=== PATIENT | male | born 2000 | race African-American/Black ===

== ENCOUNTER 2020-11-24 17:55 | Emergency (ER) | payer OTHER, SELFPAY ==
--- NOTE | ~2020-11-24 | XR_ITS ---
EXAMINATION: XR CHEST CLINICAL INFORMATION: Mid chest pain COMPARISON: None TECHNIQUE: Frontal view of the chest was obtained. FINDINGS: No significant abnormality is noted involving the heart, lungs, mediastinum, bony thorax or soft tissues. XR/XR chest 1V IMPRESSION: Unremarkable examination.
[2020-11-24 17:58] VITALS: BP 171/82; PULSE 90; RESP 18; TEMP 36.8; O2SAT 96; BMI 37.3
--- NOTE | 2020-11-24 18:49 | ED_ITS ---
HPI - Abdominal Pain General Chief Complaint: Abdominal Pain Stated Complaint: CP Time Seen by Provider: 11/24/20 18:49 Source: patient and family Mode of arrival: ambulatory Limitations: no limitations History of Present Illness HPI narrative: Patient 13 years old with no significant past medical history smokes marijuana c/o pain epigastric radiating to the mid chest for last 1 week specially after he eats food no nausea no vomiting has not taken any medication for pain so far, no nausea no vomiting Related Data Previous Rx's Medication Instructions Recorded omeprazole 20 mg PO DAILY #20 cap 11/24/20 Allergies Allergy/AdvReac Type Severity Reaction Status Date / Time No Known Allergies Allergy Unverified 02/16/20 17:12 Review of Systems Review of Systems Yes all other systems are reviewed and are negative Physical Exam Vital Signs: Vital Signs: Last Vital Signs Temp 98.0 F 11/24/20 20:11 Pulse 71 11/24/20 20:11 Resp 15 11/24/20 20:11 BP 159/81 H 11/24/20 20:11 Pulse Ox 99 11/24/20 20:11 Body Mass Index 37.3 Appearance: Alert. Oriented X3. No acute distress. anxious Eyes: PERRLA, No Nystagmus ENT: Pharynx normal. Oral Mucosa moist Neck: Normal inspection. Neck supple. CVS: Normal heart rate and rhythm. Pulses normal. Respiratory: No respiratory distress. Equal air entry bilateral, no wheezing/rales/rhonchi Abdomen: Soft mild epigastric tenderness Bowel sounds are present, no mass palpable, no CVA tenderness Skin: Skin warm and dry. Normal skin color. Normal skin turgor. Extremities: No lower extremity edema. No calf tenderness Neuro: Oriented X 3. No motor deficit. No sensory deficit MDM - Abdominal Pain MDM Narrative Medical decision making narrative: chest x-ray negative for pneumomediastinum, EKG is without any acute ischemic changes discharge patient feeling better after Maalox ECG Data Attestation: I personally reviewed and interpreted this ECG as follows: Interpretation: normal sinus rhythm heart rate 74 beats per minute normal axis normal intervals no acute ischemic changes Discharge Plan Discharge Clinical Impression: Acute superficial gastritis Patient Disposition: Home, Self-Care Instructions: Gastritis (ED) Additional Instructions: avoid spicy/ greasy food Take medication as prescribed Follow-up with PCP if not better take Maalox/ Mylanta daily 3- 4 times a day Prescriptions: New omeprazole 20 mg capsule,delayed release(DR/EC) 20 mg PO DAILY Qty: 20 RF: 0 Interventions: ED Discharge Assessment Last Done: 11/24/20 21:07 Discharge Date/Time: 11/24/20 21:08 FORMERLY [facility] Past Medical History Medical History No known health problems Social History Social History Advance Directives: No Advance Directives Information Provided: Yes
[2020-11-24] MEDS: Lidocaine HCl Viscous 2 % 15 ML SOLUTION MUCOUS MEM (19:31)
[2020-11-24] MEDS: Omeprazole 40 MG CAPSULE.DR PO (19:31)
[2020-11-24] MEDS: Magnesium Hydrox/Alum Hydrox 30 ML ORAL.SUSP PO (19:31)
--- NOTE | 2020-11-24 19:34 | ECG_ITS ---
Test Reason : CHEST PAIN Blood Pressure : / mmHG Vent. Rate : 074 BPM Atrial Rate : 074 BPM P-R Int : 140 ms QRS Dur : 080 ms QT Int : 362 ms P-R-T Axes : 010 011 -16 degrees QTc Int : 401 ms Normal sinus rhythm Minimal voltage criteria for LVH, may be normal variant Nonspecific T wave abnormality Abnormal ECG No previous ECGs available Referred By: Justice Paulino Electronically Signed By:Romaine Carreno
[2020-11-24 20:11] VITALS: BP 159/81; PULSE 71; RESP 15; TEMP 36.7; O2SAT 99
== END 2020-11-24 21:08 | disposition home or self-care (01) ==
PROVIDERS: Emergency Provider Internal Medicine
DX: K29.00 Acute gastritis without bleeding (principal)
CPT/HCPCS: 71045; 93005; 99283; 99284

== ENCOUNTER 2021-11-21 17:15 | Emergency (ER) | payer OTHER, SELFPAY ==
--- NOTE | ~2021-11-21 | CT_ITS ---
EXAMINATION: CT HEAD WITHOUT CONTRAST CLINICAL INFORMATION: Headache, dizziness, status post fall with head strike COMPARISON: None TECHNIQUE: Contiguous axial imaging was performed from the skull base to vertex without intravenous administration of contrast. This CT examination was performed using dose optimization techniques as appropriate, variously including the following: *Automated exposure control *Adjustment of mA and/or kV according to patient size (this includes techniques or standardized protocols for targeted exams where dose is matched to indication/reason for exam; i.e. extremities or head) *Use of iterative reconstruction technique DLP: 786.17 mGy-cm FINDINGS: There is no evidence of acute intracranial hemorrhage or territorial infarction. No abnormal mass effect or midline shift is seen. Nunez to white matter differentiation is well preserved. No extra-axial fluid collections are identified. The ventricles are normal in size. There is no abnormal attenuation within the brain parenchyma. The osseous structures and soft tissues are normal. The mastoid air cells and visualized portions of the paranasal sinuses are well aerated. There is a prominent posterior fossa CSF attenuation structure, likely reflecting a ana rosa cisterna magna. CT/CT head/brain wo con IMPRESSION: 1. No acute hemorrhage, mass effect, shift or fracture. 2. 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
[2021-11-21 18:01] VITALS: BP 155/81; PULSE 67; RESP 16; TEMP 36.8; O2SAT 97; BMI 37.5
[2021-11-21] MEDS: Acetaminophen 325 MG TABLET 650 MG PO (18:08)
--- NOTE | 2021-11-21 18:10 | ED.HEATRA ---
HPI - Head Injury General Chief complaint: Head Injury Stated complaint: concussion? Time Seen by Provider: 11/21/21 18:09 Source: patient Mode of arrival: ambulatory Limitations: no limitations History of Present Illness HPI Narrative: 21 yo male presents to the ER for evaluation of headache and dizziness s/p head injury yesterday. patient was playing basketball with his friends when he tripped over his friends foot and fell and hit his head on the pavement. He states he hit the right upper portion of his forehead on the cement. He did not lose consciousness. He was able to get up and continue playing. He after the game he started having headaches and intermittent dizziness. He states he woke up a few times overnight with headache. He denies any weakness, numbness, tingling, vision changes, nausea, vomiting, lethargy, confusion. He is not on anticoagulation. Complaint: head injury Onset (ago): day(s) (1) Mechanism of Injury: fall Place: outdoors Loss of Consciousness: no Location of injury: frontal Severity: moderate Severity scale (1-10): 5 Quality: aching Radiation: none Other Injuries: neck ( Bilateral neck pain of the soft tissuesthat self resolved.) Associated symptoms: denies other symptoms Related Data Previous Rx's Medication Instructions Recorded omeprazole 20 mg capsule,delayed 20 mg PO DAILY #20 caps 11/24/20 release Allergies Allergy/AdvReac Type Severity Reaction Status Date / Time No Known Allergies Allergy Verified 11/21/21 18:00 Review of Systems Review of Systems: Constitutional: No Fever, No Chills Eyes: No vision changes Cardiovascular: No Chest Pain, No SOB Respiratory: No Cough, No Sputum, No Wheezing, No dyspnea Gastrointestinal: No Nausea, No Vomiting Musculoskeletal: No joint pain, No Myalgias Skin: No Skin Lesions, No rash Neuro: No Weakness, No Numbness, + Dizziness, + Headache Psych: No Anxiety/Panic, No Depression Heme/Lymph: No Bruising, No Lymphadenopathy PMFSH Past Medical History Medical History No known health problems Social History Social History Advance Directives: No Advance Directives Information Provided: No Physical Exam Vital Signs: Vital Signs: Last Vital Signs Temp 98.3 F 11/21/21 18:01 Pulse 67 11/21/21 18:01 Resp 16 11/21/21 18:01 BP 155/81 H 11/21/21 18:01 Pulse Ox 97 11/21/21 18:01 O2 Del Method 11/21/21 18:01 BMI result Body Mass Index 37.5 Appearance: Alert. Oriented X3. No acute distress. Head: right upper forehead with superficial abrasions, no palpable skull fracture. Eyes: Pupils equal, round and reactive to light. EOMI. ENT: Pharynx normal. Neck: Normal inspection. Neck supple. CVS: Normal heart rate and rhythm. Pulses normal. Respiratory: No respiratory distress. Breath sounds normal. Skin: Skin warm and dry. Normal skin color. Normal skin turgor. No rashes. Extremities: atraumatic x4, normal range of motion. Neuro: Oriented X 3. No motor deficit. No sensory deficit. CN II-XII. Normal speech and cognition. Course Course Course Narrative: 21-year-old male presents to the ER with headache and dizziness after a head injury yesterday while playing basketball. He fell and hit his head on the cement. He did not lose consciousness. Neuro exam is nonfocal and he appears well. Will get CT scan to rule out traumatic injury. Clinical suspicion is low. Reevaluation(s) Reevaluation #1: CT scan did not show any acute hemorrhage, mass effect, shift or fracture. 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 this is a normal variant. Patient remains neurologically intact. at this time comfortable with discharge home. We discussed management of head injuries and concerning signs and symptoms to prompt urgent re-evaluation. Stable for DC home with supportive care. Critical Care Time Critical Care Time Critical Care Time: No Discharge Plan Discharge Clinical Impression: Closed head injury Patient Disposition: Home, Self-Care Instructions: Head Injury (ED) Additional Instructions: Your CT scan today did not show any traumatic injuries. You may have suffered a mild concussion with your head injury yesterday. Treatment is supportive care. Rest. Recommend both mental and physical rest. No strenuous activity. Avoid screen time. Take Motrin and/or Tylenol as needed for headaches. Follow-up with her primary care doctor. If you develop new or worsening symptoms call 911 or come back to the ER for further evaluation. Prescriptions: No Action omeprazole 20 mg capsule,delayed release(DR/EC) 20 mg PO DAILY Qty: 20 0RF Stand Alone Forms: Work/School Release
== END 2021-11-21 19:27 | disposition home or self-care (01) ==
PROVIDERS: Emergency Provider Emergency Medicine
DX: S09.90XA Unspecified injury of head, initial encounter (principal); W01.0XXA Fall on same level from slipping, tripping and stumbling without subsequent striking against object, initial encounter; Y93.67 Activity, basketball; Y92.89 Other specified places as the place of occurrence of the external cause; Y99.9 Unspecified external cause status
CPT/HCPCS: 70450; 99283; 99284

== ENCOUNTER 2022-07-28 08:44 | Emergency (ER) | payer OTHER, SELFPAY ==
--- NOTE | ~2022-07-28 | XR_ITS ---
EXAMINATION: XR SHOULDER, LEFT CLINICAL INFORMATION: Shoulder pain COMPARISON: Chest radiographs 11/24/2020 TECHNIQUE: Left shoulder is imaged in 3 views. FINDINGS: No fracture dislocation or destructive process. No arthropathy. The acromioclavicular alignment is normal. There are no visible rotator cuff calcifications. XR/XR shoulder LT min 2V IMPRESSION: Normal left shoulder.
[2022-07-28 08:48] VITALS: BP 175/97; PULSE 71; RESP 16; TEMP 36.6; O2SAT 98; BMI 36.8
--- NOTE | 2022-07-28 10:03 | ED.UPPEXIN ---
HPI - Extremity Injury (Upper) General Chief Complaint: Extremity Problem Stated Complaint: valentine jean inj at work Time Seen by Provider: 07/28/22 09:13 Source: patient Mode of arrival: ambulatory Limitations: no limitations History of Present Illness HPI narrative: 22-year-old male presenting to the ER with complaints of left shoulder pain worse with movement since yesterday after he was lifting a box at work and he fell back onto his left shoulder. Denies any head injury loss of consciousness, chest pain, any paresthesias, neck injury or any other injuries complaints concerns at this time. MD complaint: injury to: left and shoulder Onset (ago): day(s) (2) Other Extremity Injury: left: shoulder Other injuries: none Place: work Severity: mild Relieving factors: none Exacerbating factors: movement of extremity Context: fall (And lifting) Associated symptoms: denies other symptoms Related Data Previous Rx's Medication Instructions Recorded omeprazole 20 mg capsule,delayed 20 mg PO DAILY #20 caps 11/24/20 release cyclobenzaprine 10 mg tablet 10 mg PO Q8H #14 tabs 07/28/22 naproxen 500 mg tablet 500 mg PO BID PRN pain #14 tabs 07/28/22 Allergies Allergy/AdvReac Type Severity Reaction Status Date / Time No Known Allergies Allergy Verified 11/21/21 18:00 Review of Systems Review of Systems: Constitutional : No Weight loss, No Fever, No Chills, No Night Sweats, No Fatigue, No Malaise ENT/Mouth : No Hearing loss, No Ear Pain, No Nasal Congestion, No Sinus Pain, No Hoarseness, No sore throat, No Rhinorrhea, No Swallowing Difficulty Eyes: No Eye Pain, No Swelling, No Redness, No Foreign Body, No Discharge, No Vision Changes Cardiovascular : No Chest Pain, No SOB, No Dyspnea on Exertion, No Orthopnea, No Edema, No Palpitations Respiratory : No Cough, No Sputum, No Wheezing, No Smoke Exposure, No Dyspnea Gastrointestinal : No Nausea, No Vomiting, No Diarrhea, No Constipation, No abdominal Pain, No Hematochezia, No Melena Genitourinary : no irregular bleeding, No Dysuria, No Urinary Frequency, No Hematuria, No Urinary Incontinence, No Urgency, No Flank Pain, No Urinary Flow Changes, No Hesitancy Musculoskeletal : + left shoulder/scapular joint pain, No Myalgias, No Joint Swelling Skin : No Skin Lesions, No rash Neuro : No Weakness, No Numbness, No Paresthesias, No Loss of Consciousness, No Dizziness, No Headache Psych : No Anxiety/Panic, No Depression, No SI/HI/AH/VH, No Social Issues, Heme/Lymph: No Bruising, No Bleeding,No Lymphadenopathy Endocrine : No Polyuria, No Polydipsia, No Temperature Intolerance Yes all other systems are reviewed and are negative [facility] Past Medical History Attestation statement: The following information was validated with the patient. Source: old records reviewed and nursing notes reviewed Medical History No known health problems Social History Social History Advance Directives: No Advance Directives Information Provided: No Physical Exam Vital Signs: Vital Signs: Last Vital Signs Temp 98 F 07/28/22 08:48 Pulse 71 07/28/22 08:48 Resp 16 07/28/22 08:48 BP 175/97 H 07/28/22 08:48 Pulse Ox 98 07/28/22 08:48 O2 Del Method 07/28/22 08:48 BMI result Body Mass Index 36.8 vital signs have been reviewed as normal and appeared to be correct. Blood pressure normal Heart rate normal. Respiration rate normal. Temperature normal. Oxygen saturation normal. Appearance: Alert. Oriented X3. No acute distress. Head: Normal external exam. Normocephalic. Atraumatic. Eyes: PERRLA. EOMI. Conjunctiva and sclera normal. Eyelids normal. ENT: Pharynx normal. Uvula midline. Moist mucous membranes. Neck: Normal inspection. Neck supple. FROM. CVS: Normal heart rate and rhythm. Respiratory: No respiratory distress. Painless inspiration. Skin: Skin warm and dry. Normal skin color. Normal skin turgor. No rashes/lesions/lacerations noted. Extremities: Patient with tenderness palpation to the posterior aspect of the shoulder/scapula area. No obvious ligamentous or tendon injury noted. He has full range of motion. No obvious deformities are noted. No upper extremity edema noted. Otherwise all other extremities exhibit normal range of motion nontender. Neuro: Oriented X 3. No motor deficit. No sensory deficit. Reflexes normal. Normal steady gait. No focal neuro deficits noted. Vascular: + radial pulses/+ 2 distal pedal pulses/+2 dorsalis pedis b/l. Normal cap refill. No cyanosis noted to upper extremity nails and lower extremity toes nails. Course Course Course Narrative: 22-year-old male presenting with work related injury after he was lifting a heavy box approximately 50-60 lb fell back onto his left shoulder. Denies head injury loss of consciousness. This happened yesterday. Denies any other injuries. On exam there are no signs of obvious trauma. He has full range of motion. Although does have some mild tenderness palpation to the posterior aspect of the shoulder/scapula area. No obvious ligamentous or tendon injury noted. X-ray is negative for any acute processes. Therefore at this time will DC home with symptomatic treatment instructions return if any new or worsening symptoms follow up with [facility] for his job and PCP. Patient understands agrees with this plan. Medical Decision Making Independent Interpretation I performed an independent interpretation of an: Plain X-Ray (X-ray reviewed by myself and no obvious fractures or dislocations or acute processes noted discussed this with patient he understands agrees with the plan.) Radiology Impression Discussion of test interpretation with radiology: I have reviewed the radiologist's reading. Radiologist Impression: FINDINGS: No fracture dislocation or destructive process. No arthropathy. The acromioclavicular alignment is normal. There are no visible rotator cuff calcifications.? XR/XR shoulder LT min 2V IMPRESSION: Normal left shoulder. Discharge Plan Discharge Clinical Impression: Sprain of left shoulder, Work related injury Patient Disposition: Home, Self-Care Instructions: Shoulder Sprain (ED), Return to Work Instructions (ED) Prescriptions: New naproxen 500 mg tablet 500 mg PO BID PRN (Reason: pain) Qty: 14 0RF cyclobenzaprine 10 mg tablet 10 mg PO Q8H Qty: 14 0RF No Action omeprazole 20 mg capsule,delayed release(DR/EC) 20 mg PO DAILY Qty: 20 0RF Referrals: [facility] [Provider Group] (You need to follow-up with work[employer]'s Comp for your job) Stand Alone Forms: Work/School Release
== END 2022-07-28 10:58 | disposition home or self-care (01) ==
PROVIDERS: Emergency Provider Emergency Medicine
DX: S43.402A Unspecified sprain of left shoulder joint, initial encounter (principal); X50.0XXA Overexertion from strenuous movement or load, initial encounter; Y93.89 Activity, other specified; Y92.812 Truck as the place of occurrence of the external cause; Y99.0 Civilian activity done for income or pay
CPT/HCPCS: 73030; 99282; 99283

== ENCOUNTER 2022-09-26 22:19 | Emergency (ER) | payer OTHER, SELFPAY ==
--- NOTE | ~2022-09-26 | XR_ITS ---
EXAMINATION: XR ankle LT 2V, XR foot LT 2V CLINICAL INFORMATION: Injury COMPARISON: None. TECHNIQUE: 3 views of the left foot. 2 views of the left ankle. FINDINGS: Left foot: No fracture or dislocation. Alignment is maintained. Joint spaces are maintained. The soft tissues are unremarkable. Left ankle: Corticated ossification at the tip of the medial malleolus, likely from previous trauma. No definite acute fracture. The ankle mortise is congruent. No ankle joint effusion. The soft tissues are unremarkable. XR/XR ankle LT 2V IMPRESSION: No acute fracture or malalignment of the left foot or ankle. Likely old trauma at the medial malleolus.
--- NOTE | ~2022-09-26 | XR_ITS ---
EXAMINATION: XR ankle LT 2V, XR foot LT 2V CLINICAL INFORMATION: Injury COMPARISON: None. TECHNIQUE: 3 views of the left foot. 2 views of the left ankle. FINDINGS: Left foot: No fracture or dislocation. Alignment is maintained. Joint spaces are maintained. The soft tissues are unremarkable. Left ankle: Corticated ossification at the tip of the medial malleolus, likely from previous trauma. No definite acute fracture. The ankle mortise is congruent. No ankle joint effusion. The soft tissues are unremarkable. XR/XR foot LT 2V IMPRESSION: No acute fracture or malalignment of the left foot or ankle. Likely old trauma at the medial malleolus.
[2022-09-26 22:21] VITALS: BP 133/79; PULSE 68; RESP 18; TEMP 36.6; O2SAT 100; BMI 28.2
--- NOTE | 2022-09-27 01:07 | ED.GENADULT ---
HPI - General Adult General Chief complaint: Extremity Injury, Lower Stated complaint: Ankle inj Time Seen by Provider: 09/27/22 00:53 Source: patient Mode of arrival: ambulatory Limitations: no limitations History of Present Illness HPI narrative: 22-year-old male presents with left ankle pain. Patient had an inversion ankle injury while at work. Since then he has had lateral malleolus as well as medial malleolus tenderness. Pain is moderate to severe. Having difficulty ambulating. The pain does not radiate. There is no numbness or tingling. There has been some soft tissue swelling. There is no prior treatment. Related Data Previous Rx's Medication Instructions Recorded omeprazole 20 mg capsule,delayed 20 mg PO DAILY #20 caps 11/24/20 release cyclobenzaprine 10 mg tablet 10 mg PO Q8H #14 tabs 07/28/22 naproxen 500 mg tablet 500 mg PO BID PRN pain #14 tabs 07/28/22 Allergies Allergy/AdvReac Type Severity Reaction Status Date / Time No Known Allergies Allergy Verified 11/21/21 18:00 FOR[facility]LY [facility] Past Medical History Medical History No known health problems Social History Social History Advance Directives: No Advance Directives Information Provided: Yes Physical Exam ED Vital Signs: Vital Signs - 24 hr 09/26/22 22:21 Temperature 97.9 F Pulse Rate 68 Respiratory Rate 18 Blood Pressure 133/79 Pulse Oximetry 100 Oxygen Delivery Method Room Air BMI result Body Mass Index 28.2 GEN: Well developed, no acute distress, alert, oriented HEENT: Normocephalic, atraumatic, normal external ears, nose appears normal Eyes: Normal to appearance Neck: Supple, no lymphadenopathy Respiratory: Talks in complete sentences, no respiratory distress Extremities: No clubbing cyanosis or edema, soft tissue swelling left ankle particularly over malleolus, 2+ dorsal pedis posterior tibialis pulses, neurovascular intact Neurologic: No focal neurologic deficits, cranial nerves 2-12 intact, gait normal Skin: No rash Course Course Course Narrative: 22-year-old male presents with an ankle sprain. X-rays were negative for fracture. Patient will be placed on crutches and nonweightbearing for at least 2 days. He can slowly but surely increase weight-bearing as tolerates. I have referred him to orthopedics if needed. Tylenol and ibuprofen are appropriate pain management. Ice, elevation and compression. Medical Decision Making Medical Decision Making [facility] Narrative: 22-year-old male presents with acute left traumatic ankle pain. Patient is neurovascular intact with swelling and tenderness particularly over the lateral malleolus. He is neurovascularly intact otherwise. No other injuries. Differential Diagnosis Differential Diagnoses: The differential diagnosis associated with the presentation includes (Fracture, sprain, strain) Ankle sprain Independent Interpretation I performed an independent interpretation of an: Plain X-Ray (No acute traumatic injury of the left ankle or foot) Prescription Management I considered prescription management with: Pain Medication Discharge Plan Discharge Clinical Impression: Ankle sprain and strain Patient Disposition: Home, Self-Care Instructions: Ankle Sprain (ED), R.I.C.E. Treatment (ED) Prescriptions: No Action omeprazole 20 mg capsule,delayed release(DR/EC) 20 mg PO DAILY Qty: 20 0RF naproxen 500 mg tablet 500 mg PO BID PRN (Reason: pain) Qty: 14 0RF cyclobenzaprine 10 mg tablet 10 mg PO Q8H Qty: 14 0RF Referrals: Moshe Foreman MD [Physician] - 1 week Stand Alone Forms: Work/School Release
[2022-09-27] MEDS: Ibuprofen 600 MG TABLET PO (01:19)
[2022-09-27] MEDS: Acetaminophen 325 MG TABLET 975 MG PO (01:20)
== END 2022-09-27 01:24 | disposition home or self-care (01) ==
PROVIDERS: Emergency Provider Emergency Medicine; PCP Pediatrics
DX: S93.402A Sprain of unspecified ligament of left ankle, initial encounter (principal); S96.912A Strain of unspecified muscle and tendon at ankle and foot level, left foot, initial encounter; X50.1XXA Overexertion from prolonged static or awkward postures, initial encounter; Y93.9 Activity, unspecified; Y92.9 Unspecified place or not applicable; Y99.0 Civilian activity done for income or pay
CPT/HCPCS: 73600; 73620; 99283

== ENCOUNTER 2023-06-12 08:34 | Emergency (ER) | payer OTHER, SELFPAY ==
--- NOTE | ~2023-06-12 | XR_ITS ---
EXAMINATION: XR SHOULDER, LEFT CLINICAL INFORMATION: Fall. COMPARISON: None available. TECHNIQUE: AP external rotation, Grashey, scapular Y, and axillary views of the left shoulder. FINDINGS: The bones and soft tissues are normal. No fracture. Glenohumeral and acromioclavicular alignment is anatomic with normal joint space. No abnormal soft tissue calcifications. XR/XR shoulder LT min 2V IMPRESSION: Normal left shoulder.
[2023-06-12 08:37] VITALS: BP 152/87; PULSE 85; RESP 17; TEMP 36.6; O2SAT 99; BMI 36.8
--- NOTE | 2023-06-12 09:15 | ED_ITS ---
HPI - Extremity Problem General Chief complaint: Extremity Injury, Upper Stated complaint: L arm/shoulder injury due to fall Time Seen by Provider: 06/12/23 09:13 Source: patient Mode of arrival: ambulatory Limitations: no limitations History of Present Illness HPI Narrative: Patient is a 23 year old assigned male at with no reported medical history presenting to the emergency department today with left shoulder pain. Patient states that he fell when chasing his dog and his now having left shoulder pain. Patient denies any head strike or loss of consciousness. Patient denies any dizziness, lightheadedness, abdominal pain, nausea, vomiting, fever, chills, blurry vision, double vision, loss of vision, chest pain, difficulty breathing, shortness of breath, back pain, night sweats, pain with urination, increased urinary frequency, increased urinary urgency, blood in his urine or stool, syncope or a near syncopal episode, bowel incontinence, bladder incontinence, bowel retention, bladder retention, or any other complaints at this time. MD Complaint: extremity pain Location: left and upper extremity Severity scale (1-10): 3 Radiation: none Relieving factors: nothing Exacerbating factors: range of motion Related Data Previous Rx's Medication Instructions Recorded omeprazole 20 mg capsule,delayed 20 mg PO DAILY #20 caps 11/24/20 release cyclobenzaprine 10 mg tablet 10 mg PO Q8H #14 tabs 07/28/22 naproxen 500 mg tablet 500 mg PO BID PRN pain #14 tabs 07/28/22 Allergies Allergy/AdvReac Type Severity Reaction Status Date / Time No Known Allergies Allergy Verified 06/12/23 08:37 Review of Systems Constitutional: Constitutional: Reports no additional constitutional complaints, Denies chills, Denies fever(s) and Denies night sweats Eyes: Eyes: Reports no additional eye complaints, Denies blurry vision, Denies change in vision, Denies diplopia, Denies eye discharge, Denies loss of vision and Denies eye pain ENT: Denies dizziness Cardiovascular: Cardiovascular: Reports no additional cardiovascular complaints, Denies chest pain, Denies lightheadedness, Denies Loss of Consciousness and Denies dyspnea Respiratory: Respiratory: Reports no additional respiratory complaints and Denies dyspnea Gastrointestinal: Gastrointestinal: Reports no additional gastrointestinal complaints, Denies abdominal pain, Denies melena, Denies hematochezia, Denies change in bowel habits and Denies change in stool character Genitourinary: Genitourinary: Reports no additional male genitourinary complaints, Denies hematuria, Denies oliguria, Denies difficulty urinating, Denies dysuria, Denies urinary frequency, Denies urinary hesitancy, Denies urinary incontinence and Denies urinary urgency Musculoskeletal: Musculoskeletal: Reports no additional musculoskeletal complaints, Denies numbness and Denies tingling Comments: left shoulder pain Neurologic: Denies dizziness, Denies loss of vision, Denies numbness and Denies tingling Psychiatric: Psychiatric: Reports no additional psychiatric complaints Endocrine: Endocrine: Reports no additional endocrine complaints Hematologic/Lymphatic: Hematologic/Lymphatic: Reports no additional hematologic/lymphatic complaints Allergic/Immunologic: Allergic/Immunologic: Reports no additional allergic/immunologic complaints PMFSH Past Medical History Attestation statement: The following information was validated with the patient. Source: old records reviewed and nursing notes reviewed Onset Date is defined in the Problem List Problems that require an onset date and time if occurred within 24 hrs of arrival to the ED Aortic Dissection and Rupture; Neurologic impairment; Cardiopulmonary Arrest; Endotracheal Intubation; Insertion or Replacement of Mechanical Circulatory Assist Device Medical History No known health problems Social History Social History Advance Directives: No Advance Directives Information Provided: No Physical Exam Vital Signs: Vital Signs: Last Vital Signs Temp 98 F 06/12/23 08:37 Pulse 85 06/12/23 08:37 Resp 17 06/12/23 08:37 BP 152/87 H 06/12/23 08:37 Pulse Ox 99 06/12/23 08:37 O2 Del Method Room Air 06/12/23 08:37 BMI result Body Mass Index 36.8 Const: General: cooperative, no acute distress, alert and awake Nutritional Appearance: well nourished Orientation/consciousness: patient oriented x3 Limitations: no limitations HEENT: Head: Yes normal to inspection and Yes atraumatic Ears: hearing grossly normal bilaterally and external ears normal General nose exam: Normal external nose present, no nasal discharge noted and no epistaxis Face and sinus: Yes normal facial exam, No abrasion and No laceration Mouth: Normal oral and palatal mucosa present, no drooling and no muffled voice Eyes: General: appearance normal, both eyes and all related structures Periorbital: periorbital findings normal Eyelids: Yes eyelids normal Conjunctivae: conjunctivae normal Pupils: Equal, round and reactive pupils present EOM: EOMs intact bilaterally Neck: Neck: Yes normal visual inspection, Yes full ROM and Yes no lymphadenopathy Chest: Chest palpation & inspection: normal inspection of the chest Resp: Effort & Inspection: normal respiratory effort and able to speak in complete sentences GI: Inspection: Yes normal to inspection Neuro: General: patient oriented x3 and moves all extremities Cranial nerve s: Yes Equal, round and reactive pupils present Cognition (Neuro): normal cognition Motor exam (neuro): 5/5 motor strength present throughout Sensory Exam: Normal double simultaneous stimulation for sensation Coordination: [id number] test normal Extrem: General: Yes normal to inspection, Yes full ROM and Yes capillary refill normal Psych: Appearance: grossly normal Mental Status: mental status grossly normal Affect: normal affect Attitude: cooperative Thought process: Normal thought process present Thought content: Normal thought content present Insight: Good insight present (Psych) Medical Decision Making Medical Decision Making MDM Narrative: Patient is a 23 year old assigned male at with no reported medical history presenting to the emergency department today with left shoulder pain. Patient's physical exam was unremarkable. Patient's left shoulder x-ray showed no acute process. I explained my physical exam findings as well as all test results to the patient. I answered all questions asked by the patient. I stressed the importance of the patient taking his medication as prescribed. I stressed the importance of the patient following up with his primary care provider. I stressed the importance of the patient returning to the emergency department immediately if his symptoms were to worsen or if he were to develop any dizziness, shortness of breath, difficulty breathing, chest pain, blurry vision, loss of vision, nausea, vomiting, abdominal pain, fever, chills, back pain, or any other complaints. Patient verbalized agreement and understanding with this treatment plan and discharge. Differential Diagnosis Differential Diagnoses: The differential diagnosis associated with the presentation includes Shoulder pain Shoulder strain Shoulder sprain AC separation Admission/Observation Consideration of admission/observation: Escalation of care including admission/observation considered Patient would have been admitted to the hospital had his work up had any findings where hospital admission was appropriate and his clinical presentation warranted hospital admission. Independent Interpretation I performed an independent interpretation of an: Plain X-Ray Interpretation: My interpretation is in agreement with the radiologist's impression of this imaging study. EXAMINATION: XR SHOULDER, LEFT CLINICAL INFORMATION: Fall. COMPARISON: None available. TECHNIQUE: AP external rotation, Grashey, scapular Y, and axillary views of the left shoulder. FINDINGS: The bones and soft tissues are normal. No fracture. Glenohumeral and acromioclavicular alignment is anatomic with normal joint space. No abnormal soft tissue calcifications. XR/XR shoulder LT min 2V IMPRESSION: Normal left shoulder. Dictated By: Dimitry Lomeli MD Signed By: Electronically signed by Dimitry Lomeli MD 06/12/23 0973 Radiology Impression Discussion of test interpretation with radiology: I have reviewed the radiologist's reading. Discharge Plan Discharge Clinical Impression: Acute shoulder pain Patient Disposition: Home, Self-Care Instructions: Shoulder Pain (ED) Additional Instructions: Follow up with your primary care provider. Return to the emergency department immediately if your symptoms worsen or if you develop any dizziness, shortness of breath, difficulty breathing, chest pain, blurry vision, loss of vision, nausea, vomiting, abdominal pain, fever, chills, back pain, or any other complaints. Prescriptions: No Action omeprazole 20 mg capsule,delayed release(DR/EC) 20 mg PO DAILY Qty: 20 0RF naproxen 500 mg tablet 500 mg PO BID PRN (Reason: pain) Qty: 14 0RF cyclobenzaprine 10 mg tablet 10 mg PO Q8H Qty: 14 0RF Referrals: [facility] [place] Family Medicine [Provider Group] (Call to establish and follow up with a primary care provider. If you already have a primary care provider, please follow up with them.) [facility] [place] Primary Care, [place] [Provider Group] (Call to establish and follow up with a primary care provider. If you already have a primary care provider, please follow up with them.) [facility] [place] Primary Care,[place] [Provider Group] (Call to establish and follow up with a primary care provider. If you already have a primary care provider, please follow up with them.) Print Language: French
[2023-06-12] MEDS: Ketorolac Tromethamine 15 MG/ML VIAL IM (11:05)
--- NOTE | 2023-06-12 11:12 | PC.NURSE ---
patient a&ox3, c/o 12/08 left shoulder pain, pt medicated per order.
== END 2023-06-12 11:13 | disposition home or self-care (01) ==
PROVIDERS: Emergency Provider Emergency Medicine
DX: M25.512 Pain in left shoulder (principal); Z79.899 Other long term (current) drug therapy
CPT/HCPCS: 73030; 96372; 99283; 99284; J1885

== ENCOUNTER 2023-08-12 00:01 | Emergency (ER) | payer OTHER, SELFPAY ==
--- NOTE | ~2023-08-12 | XR_ITS ---
EXAMINATION: XR CHEST CLINICAL INFORMATION: Dyspnea COMPARISON: Chest x-ray November 24, 2020 TECHNIQUE: Frontal view of the chest was obtained. 12:30 AM FINDINGS: No significant abnormality is noted involving the heart, lungs, mediastinum, bony thorax or soft tissues. XR/XR chest 1V IMPRESSION: Unremarkable examination.
[2023-08-12 00:15] VITALS: PULSE 82; RESP 18; TEMP 37; O2SAT 98; BMI 36.6
[2023-08-12 01:40] VITALS: BP 134/69; PULSE 69; RESP 17; TEMP 36.4; O2SAT 97
[2023-08-12 01:47] LABS: Influenza A PCR NEGATIVE (Negative); Influenza B PCR NEGATIVE (Negative); Resp Syncy Virus RNA Qual PCR NEGATIVE (Negative); SARS COV2 PCR INHOUSE NEGATIVE (Negative)
--- NOTE | 2023-08-12 01:49 | ED.SOB ---
HPI - SOB/Dyspnea General Chief Complaint: Dyspnea Stated Complaint: difficulty breathing Time Seen by Provider: 08/12/23 01:43 Source: patient Mode of arrival: ambulatory Limitations: no limitations History of Present Illness HPI Narrative: 23 yo male PMH of gastritis here with 2 days feels he cannot take a deep enough breath, no CP, no travel, no fevers or cough. He has not had this before. No hx of asthma. He thinks it is anxiety MD elicited complaint: shortness of breath Onset (ago): day(s) (2) Context: other (possible anxiety) Timing: intermittent Severity: moderate Exacerbating factors: nothing Relieving factors: nothing Associated symptoms: denies other symptoms Treatment prior to arrival: none Related Data Previous Rx's Medication Instructions Recorded omeprazole 20 mg capsule,delayed 20 mg PO DAILY #20 caps 11/24/20 release cyclobenzaprine 10 mg tablet 10 mg PO Q8H #14 tabs 07/28/22 naproxen 500 mg tablet 500 mg PO BID PRN pain #14 tabs 07/28/22 hydroxyzine HCl 25 mg tablet 25 mg PO Q8H PRN anxiety #20 tabs 08/12/23 Allergies Allergy/AdvReac Type Severity Reaction Status Date / Time No Known Allergies Allergy Verified 08/12/23 00:17 Review of Systems Review of Systems: Constitutional : No Fever, No Chills ENT/Mouth : No Ear Pain, No Nasal Congestion, No sore throat Eyes: No Eye Pain, No Swelling, No Redness Cardiovascular : No Chest Pain, pos SOB Respiratory : No Cough, No Sputum, No Dyspnea Gastrointestinal : No Nausea, No Vomiting, No Diarrhea, No Hematochezia, No Melena Genitourinary : No Dysuria, No Urinary Frequency, No Hematuria Musculoskeletal : No Myalgias Skin : No Skin Lesions, No rash Neuro : No Weakness, No Numbness, No Paresthesias, No Dizziness, No Headache Psych : positive Anxiety, no Depression, no SI/HI All other systems reviewed and are negative [facility] Past Medical History Attestation statement: The following information was validated with the patient. Source: old records reviewed Medical History No known health problems Social History Social History (Updated 08/12/23 @ 01:58 by Anali Menjivar DO) Patient Tobacco Use Status: Never used Tobacco Physical Exam Vital Signs: Vital Signs: Last Vital Signs Temp 97.5 F 08/12/23 01:40 Pulse 69 08/12/23 01:40 Resp 17 08/12/23 01:40 BP 134/69 08/12/23 01:40 Pulse Ox 97 08/12/23 01:40 O2 Del Method Room Air 08/12/23 01:40 BMI result Body Mass Index 36.6 Appearance: Alert. Oriented X3. No acute distress. Eyes: Pupils equal, round and reactive to light. ENT: Pharynx normal. Neck: Normal inspection. Neck supple. CVS: Normal heart rate and rhythm. Pulses normal. Respiratory: No respiratory distress. Breath sounds normal. Abdomen: Soft and nontender. Skin: Skin warm and dry. Normal skin color. Normal skin turgor. Extremities: No lower extremity edema. No calf ttp Neuro: Oriented X 3. No motor deficit. No sensory deficit. Medical Decision Making Medical Decision Making MDM Narrative: 23 yo male no sig PMH here with intermittent dyspnea and feeling anxiety he has clear lungs stable VS, CXR and swabs are negative, he is PERC negative, he has no SI. He denies GIB symptoms he is not toxic appearing will provide atarax and instruct him to return. Differential Diagnosis Differential Diagnoses: The differential diagnosis associated with the presentation includes anxiety, URI Lab Data [facility] Lab Attestation statement: I reviewed the patient's lab results. Labs: Lab Results 08/12/23 Range/Units 01:06 Influenza Type A (PCR) NEGATIVE (Negative) Influenza Type B (PCR) NEGATIVE (Negative) RSV RNA Qual (PCR) NEGATIVE (Negative) SARS-CoV-2 RNA (RT-PCR) NEGATIVE (Negative) Independent Interpretation I performed an independent interpretation of an: Plain X-Ray (normal ) Radiology Impression Discussion of test interpretation with radiology: I have reviewed the radiologist's reading. Independent Historian Clinical information obtained from an independent historian. History obtained from or confirmed by: Spouse Prescription Management I considered prescription management with: Other Discharge Plan Discharge Clinical Impression: Breath shortness Patient Disposition: Home, Self-Care Instructions: Shortness of Breath (ED) Additional Instructions: return for worsening symptoms or concerns. viral swab and chest xray are normal I suspect your symptoms might be related to anxiety try these medications to see if it helps Prescriptions: New hydroxyzine HCl 25 mg tablet 25 mg PO Q8H PRN (Reason: anxiety) Qty: 20 0RF No Action omeprazole 20 mg capsule,delayed release(DR/EC) 20 mg PO DAILY Qty: 20 0RF naproxen 500 mg tablet 500 mg PO BID PRN (Reason: pain) Qty: 14 0RF cyclobenzaprine 10 mg tablet 10 mg PO Q8H Qty: 14 0RF Stand Alone Forms: Work/School Release
[2023-08-12] MEDS: hydrOXYzine HCL 25 MG TABLET PO (02:03)
== END 2023-08-12 02:09 | disposition home or self-care (01) ==
PROVIDERS: Emergency Provider Emergency Medicine
DX: K29.70 Gastritis, unspecified, without bleeding (principal); R06.02 Shortness of breath; F41.1 Generalized anxiety disorder; F43.0 Acute stress reaction; Z11.52 Encounter for screening for COVID-19; Z20.822 Contact with and (suspected) exposure to COVID-19; Z79.899 Other long term (current) drug therapy
CPT/HCPCS: 0241U; 71045; 99283; 99284